=== PATIENT | male | born 1995 | race Caucasian/White ===

== ENCOUNTER 2016-07-05 10:27 | Emergency (ER) | payer MEDICAID ==
[~2016-07-05] VITALS: Ht 177.8 cm; Wt 79.4 kg
[2016-07-05 10:31] VITALS: BP 120/75
== END 2016-07-05 11:16 | disposition home or self-care (01) ==
LOC: ED 10:27
DX: J06.9 Acute upper respiratory infection, unspecified (principal); H53.8 Other visual disturbances

== ENCOUNTER 2016-10-10 11:34 | Emergency (ER) | payer MEDICAID ==
[~2016-10-10] VITALS: Ht 175.3 cm; Wt 76.4 kg
[2016-10-10 11:45] VITALS: BP 139/72
== END 2016-10-10 17:00 | disposition home or self-care (01) ==
LOC: ED 11:34
DX: T23.221A Burn of second degree of single right finger (nail) except thumb, initial encounter (principal); Z88.0 Allergy status to penicillin; X08.8XXA Exposure to other specified smoke, fire and flames, initial encounter; Y93.89 Activity, other specified; Y99.8 Other external cause status; Y92.89 Other specified places as the place of occurrence of the external cause

== ENCOUNTER 2016-12-25 13:39 | Emergency (ER) | payer MEDICAID ==
[~2016-12-25] VITALS: Ht 254 cm; Wt 80.7 kg
[2016-12-25 17:38] VITALS: BP 145/87
== END 2016-12-25 17:38 | disposition home or self-care (01) ==
LOC: ED 13:39
DX: S61.211A Laceration without foreign body of left index finger without damage to nail, initial encounter (principal); Z88.0 Allergy status to penicillin; W25.XXXA Contact with sharp glass, initial encounter; Y93.89 Activity, other specified; Y92.89 Other specified places as the place of occurrence of the external cause; Y99.8 Other external cause status

== ENCOUNTER 2016-12-27 08:04 | Emergency (ER) | payer MEDICAID ==
[~2016-12-27] VITALS: Ht 177.8 cm; Wt 81.0 kg
[2016-12-27 08:09] VITALS: BP 143/74
== END 2016-12-27 08:49 | disposition home or self-care (01) ==
LOC: ED 08:04
DX: R10.31 Right lower quadrant pain (principal); R19.03 Right lower quadrant abdominal swelling, mass and lump; Z88.0 Allergy status to penicillin

== ENCOUNTER 2017-02-01 08:18 | Emergency (ER) | payer OTHER ==
[~2017-02-01] VITALS: Ht 180.3 cm; Wt 80.7 kg
[2017-02-01 09:40] VITALS: BP 130/86
== END 2017-02-01 09:40 | disposition home or self-care (01) ==
LOC: ED 08:18
DX: L02.413 Cutaneous abscess of right upper limb (principal); R03.0 Elevated blood-pressure reading, without diagnosis of hypertension; Z88.0 Allergy status to penicillin

== ENCOUNTER 2017-05-21 13:58 | Emergency (ER) | payer OTHER ==
[~2017-05-21] VITALS: Ht 177.8 cm; Wt 78.9 kg
[2017-05-21 14:21] VITALS: Ht 177.8 cm; Wt 78.9 kg
[2017-05-21 16:24] VITALS: BP 123/73
== END 2017-05-21 16:24 | disposition home or self-care (01) ==
LOC: ED 13:58
DX: S63.611A Unspecified sprain of left index finger, initial encounter (principal); S63.615A Unspecified sprain of left ring finger, initial encounter; W22.8XXA Striking against or struck by other objects, initial encounter; Y93.89 Activity, other specified; Y92.89 Other specified places as the place of occurrence of the external cause; Y99.8 Other external cause status

== ENCOUNTER 2017-11-28 22:42 | Emergency (ER) | payer BC, OTHER ==
[~2017-11-28] VITALS: Ht 177.8 cm; Wt 81.2 kg
[2017-11-28 22:56] VITALS: Ht 177.8 cm; Wt 81.2 kg
[2017-11-29 00:53] VITALS: BP 135/68
[2017-11-29 02:06] LABS: UA SPECIFIC GRAVITY 1.025 (1.005-1.035); microscopic required? YES; urine erythrocyte NEGATIVE (NEGATIVE)
== END 2017-11-29 00:53 | disposition home or self-care (01) ==
LOC: ED 22:42
PROVIDERS: Emergency Medicine
DX: N34.2 Other urethritis (principal); Z88.0 Allergy status to penicillin
CPT/HCPCS: 87491; 87591; J0696; J2001

== ENCOUNTER 2018-05-20 14:35 | Emergency (ER) | payer OTHER ==
[~2018-05-20] VITALS: Ht 177.8 cm; Wt 84.4 kg
[2018-05-20 15:41] VITALS: Ht 177.8 cm; Wt 84.4 kg
[2018-05-20 17:08] VITALS: BP 155/90
== END 2018-05-20 17:08 | disposition home or self-care (01) ==
LOC: ED 14:35
DX: M26.601 Right temporomandibular joint disorder, unspecified (principal); Z88.0 Allergy status to penicillin

== ENCOUNTER 2018-05-30 19:04 | Emergency (ER) | payer SELFPAY ==
[~2018-05-30] VITALS: Ht 177.8 cm; Wt 86.2 kg
[2018-05-30 19:18] VITALS: BP 137/69; Ht 177.8 cm; Wt 86.2 kg
[2018-05-30 21:39] LABS: BASOPHIL % 0.1 % (0-2); PLATELET COUNT 164 x10^3mcL (130-400); RED CELL DISTRIBUTION WIDTH 12.9 % (11.5-14.5)
[2018-05-30 22:00] LABS: CALCIUM 8.2 mg/dL (8.5-10.1); CARBON DIOXIDE 28.6 mmol/L (21-32); CHLORIDE SERUM 97 mmol/L (98-107); GFR1 > 60 mL/min; GLUCOSE SERUM 113 mg/dL (74-106); POTASSIUM SERUM 3.5 mmol/L (3.5-5.1); SODIUM SERUM 135 mmol/L (136-145)
[2018-05-30 22:04] LABS: ALBUMIN 3.8 g/dL (3.4-5.0); ALKALINE PHOSPHATASE 94 U/L (46-116); ALT/SGPT 34 U/L (16-63); AST/SGOT 30 U/L (15-37); BILIRUBIN TOTAL 0.56 mg/dL (0.20-1.00); LIPASE 69 IU/L (73-393); TOTAL PROTEIN, SERUM 7.6 g/dL (6.4-8.2)
== END 2018-05-30 22:23 | disposition home or self-care (01) ==
LOC: ED 19:04
PROVIDERS: Emergency Medicine
DX: R10.32 Left lower quadrant pain (principal); R11.10 Vomiting, unspecified; R19.7 Diarrhea, unspecified; Z88.0 Allergy status to penicillin
CPT/HCPCS: 36415; J0500; Q0162

== ENCOUNTER 2018-09-29 11:51 | Emergency (ER) | payer SELFPAY ==
[~2018-09-29] VITALS: Ht 177.8 cm; Wt 79.4 kg
[2018-09-29 12:05] VITALS: Ht 177.8 cm; Wt 79.4 kg
[2018-09-29 13:19] VITALS: BP 102/75
== END 2018-09-29 13:19 | disposition home or self-care (01) ==
LOC: ED 11:51
DX: G44.209 Tension-type headache, unspecified, not intractable (principal); F43.9 Reaction to severe stress, unspecified; Z88.0 Allergy status to penicillin